=== PATIENT | male | born 1965 | race Two or more races ===

== ENCOUNTER 2016-06-08 17:03 | Emergency (ER) | payer MEDICAID, OTHER ==
[~2016-06-08] VITALS: Ht 167.6 cm; Wt 68.0 kg
[2016-06-08] MEDS ORDERED: TETANUS-DIPTH-ACEL PERTUSSIS 0.5ML SYRG IM ONE (19:30)
[2016-06-08 19:34] VITALS: BP 120/80
[2016-06-08] MEDS ORDERED: BACITRACIN-POLYMYXIN B TOPICAL OINT UD TOP ONE (20:07)
[2016-06-08] MEDS ORDERED: BACITRACIN TOP OINT 1 UD PKG TOP ONE (20:30)
== END 2016-06-08 20:21 | disposition home or self-care (01) ==
LOC: EDUNIT# 17:03 → ER 17:09
DX: S61.411A Laceration without foreign body of right hand, initial encounter (principal); Z23 Encounter for immunization; W26.0XXA Contact with knife, initial encounter; Y93.89 Activity, other specified; Y99.8 Other external cause status; Y92.89 Other specified places as the place of occurrence of the external cause
CPT/HCPCS: 90471; 90715